=== PATIENT | male | born 1990 | race Caucasian/White ===

== ENCOUNTER 2020-06-07 21:46 | Emergency (ER) | payer OTHER ==
[2020-06-07 22:28] LABS: BILIRUBIN NEGATIVE (NEGATIVE); BLOOD TRACE-INTACT Ery/uL (NEGATIVE); CLARITY CLEAR (CLEAR); COLOR YELLOW (YELLOW); GLUCOSE (U) NORMAL (NORMAL); LEUKOCYTES NEGATIVE Leu/uL (NEGATIVE); NITRITE NEGATIVE (NEGATIVE); PROTEIN NEGATIVE (NEGATIVE); SPECIFIC GRAVITY 1.025 (1.001-1.030); UROBILINOGEN 0.2 mg/dL (0.2-1.0)
[2020-06-07 22:33] LABS: BASOPHIL 0.7 % (0-2); EOSINOPHIL 6.4 % (0-5); HGB 14.7 g/dl (13.2-18.0); LYMPHOCYTE 31.1 % (15-48); MCH 27.4 pg (25.0-31.0); MCHC 32.7 g/dL (32.0-36.0); MONOCYTE 7.9 % (0-12); MPV 9.5 fL (6.0-9.5); NEUTROPHIL 53.1 % (41-80); NRBC 0; PLT 368 K/uL (150-400); RBC 5.36 M/uL (4.70-6.00); RDW 13.6 % (11.5-14.0); WBC 11.1 K/uL (4.0-10.5)
[2020-06-07 22:36] LABS: AMORPHOUS URATES CRYSTALS TRACE; BACTERIA TRACE; MUCOUS TRACE; SQUAMOUS EPITHELIAL CELLS RARE; URINARY WBC RARE
[2020-06-07 22:44] LABS: BILIRUBIN - TOTAL 0.2 mg/dL (0.2-1.0); BUN/CREAT RATIO (CALC) 12.6 RATIO; CREATININE 1.19 mg/dL (0.67-1.17); GLOBULIN (CALCULATION) 3.2 g/dL; POTASSIUM 3.8 mmol/L (3.5-5.1); TOTAL PROTEIN 7.2 g/dL (6.4-8.2)
[2020-06-08] MEDS ORDERED: IBUPROFEN800 MG PO (00:18)
[2020-06-08] MEDS ORDERED: NORCO 5-325 TA1 EACH PO (00:18)
[2020-06-08] MEDS ORDERED: FLOMAX0.4 MG PO (00:18)
[2020-06-08] MEDS ORDERED: ONDANSETRON ODT4 MG SL (00:18)
== END 2020-06-08 00:48 | disposition home or self-care (01) ==
LOC: FER 21:46
PROVIDERS: Emergency Medicine Emergency Medical Services
DX: N13.2 Hydronephrosis with renal and ureteral calculous obstruction (principal); K21.9 Gastro-esophageal reflux disease without esophagitis; Z88.0 Allergy status to penicillin; Z79.899 Other long term (current) drug therapy
CPT/HCPCS: 36415; 80053; 81001; 85025; J1885; J2405; J7030

== ENCOUNTER 2021-05-13 17:10 | Emergency (ER) | payer OTHER ==
[~2021-05-13 17:10] MED LIST: FLOMAX0.4 MG PO; IBUPROFEN800 MG PO; NORCO 5-325 TA1 EACH PO; ONDANSETRON ODT4 MG SL
[2021-05-13] MEDS ORDERED: KEFLEX250 MG PO (20:37)
[2021-05-13] MEDS ORDERED: NORCO 5-325 TA1 EACH PO (20:37)
== END 2021-05-13 21:05 | disposition home or self-care (01) ==
LOC: FER 17:10
DX: S61.311A Laceration without foreign body of left index finger with damage to nail, initial encounter (principal); K21.9 Gastro-esophageal reflux disease without esophagitis; Z23 Encounter for immunization; Z88.0 Allergy status to penicillin; Z79.899 Other long term (current) drug therapy; W27.0XXA Contact with workbench tool, initial encounter; Y92.009 Unspecified place in unspecified non-institutional (private) residence as the place of occurrence of the external cause
CPT/HCPCS: 73140; 90471; 90715